=== PATIENT | female | born 1970 | race Caucasian/White ===

== ENCOUNTER → 2016-11-04 | Outpatient (CLI) | payer OTHER | LOC: COL.RAD 13:02 | DX: M25.512 Pain in left shoulder (principal); S43.432A Superior glenoid labrum lesion of left shoulder, initial encounter | CPT/HCPCS: A9585; Q9967 ==

== ENCOUNTER → 2017-05-19 | Outpatient (CLI) | payer OTHER | LOC: MHCPAIN 08:50 | DX: G89.29 Other chronic pain (principal); R51 Headache; M79.1 Myalgia | CPT/HCPCS: G0463 ==

== ENCOUNTER → 2017-05-30 | Outpatient (CLI) | payer OTHER | LOC: MHCPAIN 08:48 | DX: M79.1 Myalgia (principal) | CPT/HCPCS: J1040 ==

== ENCOUNTER → 2017-09-09 | Outpatient (CLI) | payer OTHER | LOC: MHCPAIN 10:19 | DX: G89.29 Other chronic pain (principal); M47.27 Other spondylosis with radiculopathy, lumbosacral region; M47.814 Spondylosis without myelopathy or radiculopathy, thoracic region; M53.3 Sacrococcygeal disorders, not elsewhere classified; M96.1 Postlaminectomy syndrome, not elsewhere classified | CPT/HCPCS: G0463 ==

== ENCOUNTER → 2018-01-05 | Outpatient (CLI) | payer OTHER | LOC: MC.RAD 12:54 | DX: N64.4 Mastodynia (principal) ==

== ENCOUNTER → 2019-04-22 | Outpatient (CLI) | payer OTHER | LOC: COL.RAD 14:19 | DX: R35.0 Frequency of micturition (principal) ==